=== PATIENT | male | born 1975 | race Caucasian/White ===

== ENCOUNTER → 2020-06-22 | Emergency (ER) | payer OTHER ==
[~2020-06-22] VITALS: Ht 167.6 cm; Wt 120.2 kg
[~2020-06-22] MED LIST: KETO10TA2 PO
== END | disposition home or self-care (01) ==
LOC: ER 16:01
DX: N13.2 Hydronephrosis with renal and ureteral calculous obstruction (principal)

== ENCOUNTER 2021-03-23 13:20 | Emergency (ER) | payer OTHER ==
[~2021-03-23] VITALS: Ht 167.6 cm; Wt 117.9 kg
[2021-03-23] MEDS ORDERED: TAMS0.4C PO (16:51)
[2021-03-23] MEDS ORDERED: KETO10TA2 PO (16:51)
[2021-03-23] MEDS ORDERED: BACTRIM DS TAB1 EACH PO (16:51)
== END 2021-03-23 17:00 | disposition home or self-care (01) ==
LOC: ER 13:20
DX: N20.1 Calculus of ureter (principal)

== ENCOUNTER 2023-03-04 10:56 | Emergency (ER) | payer OTHER ==
[~2023-03-04] VITALS: Ht 167.6 cm; Wt 113.4 kg
[~2023-03-04 10:56] MED LIST changes: +BACTRIM DS TAB1 EACH PO; +TAMS0.4C PO
== END 2023-03-04 16:20 | disposition home or self-care (01) ==
LOC: ER 10:56
DX: N20.1 Calculus of ureter (principal); N20.0 Calculus of kidney